=== PATIENT | male | born 1990 | race Caucasian/White ===

== ENCOUNTER 2022-07-04 09:10 | Emergency (ER) | payer OTHER ==
[2022-07-04] MEDS ORDERED: solu-MEDROL 125 MG, Sterile H2O 10 ml 2 ML IM ONE ×2 (09:32)
[2022-07-04] MEDS ORDERED: TORAdol 30 mg Injection IM ONE (09:33)
[2022-07-04] MEDS ORDERED: TORAdol 30 mg Injection ONE ×2 (09:37→09:41)
[2022-07-04] MEDS ORDERED: solu-MEDROL ONE (09:37)
[2022-07-04] MEDS ORDERED: Sterile H2O 10 ml IJ ONE (09:37)
[2022-07-04 09:45] LABS: Hematocrit 44.2 % (42-50); Hemoglobin 14.8 g/dL (12.5-18.0); Mean Cell Volume 89.7 fL (78-100); Mean Corpuscular Hgb Concent. 33.5 g/dL (32-36); Platelet Count 275 x10^3/uL (150-450); Red Blood Count 4.93 x10^6/uL (4.1-5.6); Red Cell Distribution Width 12.4 % (11.5-14.0)
[2022-07-04 09:48] VITALS: BP 140/76; PULSE 88; O2SAT 95
[2022-07-04 09:58] LABS: Erythrocyte Sedimentation Rate 9 mm/hr (0-15)
[2022-07-04 10:02] LABS: ALBUMIN 4.2 g/dL (3.5-5.0); ALKALINE PHOSPHATASE 75 U/L (38-126); ANION GAP 13.1 MEQ/L (5-15); BLOOD UREA NITROGEN 15 mg/dL (9-20); CHLORIDE 108 mmol/L (98-107); Calcium 8.9 mg/dL (8.4-10.2); Carbon Dioxide 25 mmol/L (22-30); Creatinine 1 0.94 mg/dL (0.66-1.25); EST GLOMERULAR FILTRATION RATE > 60.0 ML/MIN; Glucose 98 mg/dL (74-106); Potassium 4.3 mmol/L (3.5-5.1); SGOT/AST 30 U/L (17-59); SGPT/ALT 39 U/L (0-50); SODIUM 142 mmol/L (137-145); Total Protein 7.3 g/dL (6.3-8.2)
--- NOTE | 2022-07-04 10:17 | ERPHSYRPT ---
- History of Present Illness Time Seen by Provider: 07/04/22 09:40 Source: patient Exam Limitations: no limitations Patient Subjective Stated Complaint: C/O left outer ankle and foot pain. Patient states he has had gout flare ups prior and that this feels like the same thing to him. Triage Nursing Assessment: Patient brought back to ER in a W/C. He is alert and oriented. No SOB. Some warmth noted to left outer ankle and foot. No redness noted at this time. Physician History: Patient is a 31-year-old male who presents with a complaint of left foot pain. He has has a history of gout and he feels that this is another exacerbation of that disease. Most of the time his pain is in the right foot but this episode for the first time involves the left foot. The foot is hot to the touch and very tender. Method of Injury: unknown Occurred: yesterday Quality: burning, throbbing Severity of Pain-Max: severe Severity of Pain-Current: severe Lower Extremities Pain: foot: left Modifying Factors: Improves With: movement, other (Palpation) Associated Symptoms: unable to bear weight Allergies/Adverse Reactions: ciprofloxacin [From Cipro] Allergy (Severe, Verified 07/04/22 09:32) Difficulty Breathing Hx Tetanus, Diphtheria Vaccination/Date Given: Yes Hx Influenza Vaccination/Date Given: No Hx Pneumococcal Vaccination/Date Given: No Immunizations Up to Date: Yes Travel Risk - International Travel Have you traveled outside of the country in past 3 weeks: No - Coronavirus Screening Are you exhibiting any of the following symptoms?: No Close contact with a COVID-19 positive Pt in past 14-21 Days: No - Vaccine Status Have you recieved a Covid-19 vaccination: Yes 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[employer] - Review of Systems Constitutional: No Fever, No Chills Eyes: No Symptoms Ears, Nose, & Throat: No Symptoms Respiratory: No Cough, No Dyspnea Cardiac: No Chest Pain, No Edema, No Syncope Abdominal/Gastrointestinal: No Abdominal Pain, No Nausea, No Vomiting, No Diarrhea Genitourinary Symptoms: No Dysuria Musculoskeletal: Joint Pain, Joint Swelling, No Back Pain, No Neck Pain Skin: No Rash Neurological: No Dizziness, No Focal Weakness, No Sensory Changes Psychological: No Symptoms Endocrine: No Symptoms All Other Systems: Reviewed and Negative - Past Medical History Pertinent Past Medical History: Yes Musculoskeletal History: Fractures Other Medical History: gout, right ankle fracture - Past Surgical History Past Surgical History: Yes Gastrointestinal: Appendectomy Other Surgical History: Mastoidectomy - Social History Smoking Status: Current every day smoker How long have you smoked: 13 years Exposure to second hand smoke: No Drug Use: marijuana Patient Lives Alone: No - Nursing Vital Signs Nursing Vital Signs: Initial Vital Signs Temperature 97.8 F 07/04/22 09:34 Pulse Rate 88 07/04/22 09:34 Respiratory Rate 16 07/04/22 09:34 Blood Pressure 140/76 07/04/22 09:34 O2 Sat by Pulse Oximetry 95 07/04/22 09:34 Pain Scale Pain Intensity 6 - Physical Exam General Appearance: mild distress, alert Eyes, Ears, Nose, Throat Exam: moist mucous membranes Neck Exam: non-tender, supple Cardiovascular/Respiratory Exam: chest non-tender, normal breath sounds, regular rate/rhythm, no respiratory distress Gastrointestinal/Abdominal Exam: non-tender, guarding Back Exam: normal inspection, No vertebral tenderness Hips Exam: bilateral: non-tender, normal inspection, normal range of motion Legs Exam: bilateral leg: non-tender, normal inspection, normal range of motion Knees Exam: bilateral knee: non-tender, normal inspection, normal range of motion Ankle Exam: bilateral ankle: non-tender, normal inspection, normal range of alma on Foot Exam: left foot: bone tenderness, limited range of motion, pain, soft tissue tenderness, swelling, other (Warm to touch) Neuro/Tendon Exam: normal sensation, normal motor functions Mental Status Exam: alert, oriented x 3, cooperative Skin Exam: normal color, warm, dry SpO2 Interpretation: normal SpO2: 95 O2 Delivery: Room Air - Course Nursing assessment & vital signs reviewed: Yes Ordered Tests: Active Orders 24 hr Category Date Time Status CBC Stat Lab 07/04/22 09:44 Completed CMP Stat Lab 07/04/22 09:44 Completed SED RATE [Erythrocyte Sedimentation Rate] Stat Lab 07/04/22 09:44 Completed Uric Acid Stat Lab 07/04/22 09:44 Completed Medication Summary Discontinued Medications Generic Name Dose Route Start Last Admin Trade Name Freq PRN Reason Stop Dose Admin Methylprednisolone Sodium 0 mg 07/04/22 09:32 07/04/22 09:39 Succinate 125 mg/ Sterile IM 07/04/22 09:33 125 mg Water 2 ml STAT ONE Administration Ketorolac Tromethamine 60 mg 07/04/22 09:33 07/04/22 09:39 Ketorolac Tromethamine 30 Mg/Ml Inj IM 07/04/22 09:34 60 mg STAT ONE Administration Ketorolac Tromethamine Confirm 07/04/22 09:37 Ketorolac Tromethamine 30 Mg/Ml Inj Administered 07/04/22 09:38 Dose 30 mg .ROUTE .STK-MED ONE Ketorolac Tromethamine Confirm 07/04/22 09:41 Ketorolac Tromethamine 30 Mg/Ml Inj Administered 07/04/22 09:42 Dose 30 mg .ROUTE .STK-MED ONE Methylprednisolone Sodium Succinate Confirm 07/04/22 09:37 Methylprednis Sod Succ 125 Mg/2 Ml Vial Administered 07/04/22 09:38 Dose 125 mg .ROUTE .STK-MED ONE Sterile Water Confirm 07/04/22 09:37 Water For Injection,Sterile 10 Ml Vial Administered 07/04/22 09:38 Dose 10 ml IJ .STK-MED ONE Lab/Rad Data: Laboratory Result Diagrams 07/04/22 09:44 07/04/22 09:44 Laboratory Results 07/04/22 07/04/22 07/04/22 Range/Units 09:44 09:44 09:44 WBC 8.0 (4.0-10.5) x10^3/uL RBC 4.93 (4.1-5.6) x10^6/uL Hgb 14.8 (12.5-18.0) g/dL Hct 44.2 (42-50) % MCV 89.7 (78-100) fL MCH 30.0 (26-32) pg MCHC 33.5 (32-36) g/dL RDW 12.4 (11.5-14.0) % Plt Count 275 (150-450) x10^3/uL MPV 9.0 (7.5-11.0) fL ESR 9 (0-15) mm/hr Sodium 142 (137-145) mmol/L Potassium 4.3 (3.5-5.1) mmol/L Chloride 108 H (98-107) mmol/L Carbon Dioxide 25 (22-30) mmol/L Anion Gap 13.1 (5-15) MEQ/L BUN 15 (9-20) mg/dL Creatinine 0.94 (0.66-1.25) mg/dL Estimated GFR > 60.0 ML/MIN Glucose 98 (74-106) mg/dL Uric Acid 8.7 H (3.5-7.2) mg/dL Calcium 8.9 (8.4-10.2) mg/dL Total Bilirubin 0.40 (0.2-1.3) mg/dL AST 30 (17-59) U/L ALT 39 (0-50) U/L Alkaline Phosphatase 75 (38-126) U/L Serum Total Protein 7.3 (6.3-8.2) g/dL Albumin 4.2 (3.5-5.0) g/dL - Progress Progress: unchanged Progress Note: 07/04/22 10:12 Elevated uric acid consistent with acute gouty arthritis Medical Desision Making - Independent Historian Additional History obtained from: Relative/friend - Diagnostic Testing Diagnostic test were ordered, analyzed, and reviewed by me: Yes - Risk of complications Minimal Risk: Minimal risk of morbidity - Departure Departure Disposition: Home Clinical Impression: Acute gouty arthritis Condition: Stable Critical Care Time: No Prescriptions: Prednisone 10 mg [Deltasone 10 mg] 20 mg PO TID 6 Days #24 tablet Diclofenac Sodium 50 mg [Voltaren 50 mg] 50 mg PO TID 10 Days #30 tablet Allopurinol 300 mg [Zyloprim 300 mg] 300 mg PO DAILY 30 Days #30 tablet
== END 2022-07-04 10:35 | disposition home or self-care (01) ==
LOC: ED 09:10
DX: M10.9 Gout, unspecified (principal); M79.672 Pain in left foot; Z79.52 Long term (current) use of systemic steroids; Z72.0 Tobacco use
CPT/HCPCS: 36415; 80053; 84550; 85027; 85652; 96372; 99283; J1885; J2930

== ENCOUNTER 2022-07-29 23:52 | Emergency (ER) | payer OTHER ==
--- NOTE | 2022-07-30 00:03 | ERPHSYRPT ---
- History of Present Illness Time Seen by Provider: 07/30/22 00:03 Source: patient, EMS, old records Exam Limitations: clinical condition Physician History: This is a morbidly obese 32-year-old white male patient who presents via ambulance because of generalized body pain. Pain worse in his abdomen and even into his testicles. Patient used methamphetamines at about 8 PM and the pain started approximately 9:30 PM. Patient does use marijuana and smokes cigarettes as well. He has no specific reason why he was using methamphetamines other than to get high. Patient states he had not eaten since yesterday. He states he has not been hungry. Additional history was obtained by reviewing old charts and obtaining history from paramedics. He describes the pain is throbbing cramping and stabbing. He has not had any vomiting. He denies diarrhea. Patient states he has not suffered any acute traumatic injury Timing/Duration: today Severity: moderate Associated Symptoms: abdominal pain, other (Bilateral groin pain), No fever Allergies/Adverse Reactions: ciprofloxacin [From Cipro] Allergy (Severe, Verified 07/29/22 23:56) Difficulty Breathing Home Medications: No Reportable Medications [No Reported Medications] 07/29/22 [History] Hx Tetanus, Diphtheria Vaccination/Date Given: Yes Hx Influenza Vaccination/Date Given: No Hx Pneumococcal Vaccination/Date Given: No Travel Risk - International Travel Have you traveled outside of the country in past 3 weeks: No - Coronavirus Screening Are you exhibiting any of the following symptoms?: No Close contact with a COVID-19 positive Pt in past 14-21 Days: No - Vaccine Status Have you recieved a Covid-19 vaccination: Yes 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[employer] - Review of Systems Constitutional: No Symptoms Eyes: No Symptoms Ears, Nose, & Throat: No Symptoms Respiratory: No Symptoms Cardiac: No Symptoms Abdominal/Gastrointestinal: Abdominal Pain, No Nausea, No Vomiting, No Diarrhea Genitourinary Symptoms: No Symptoms Skin: No Symptoms Neurological: No Symptoms Psychological: Drug Abuse, Anxiety Endocrine: No Symptoms Hematologic/Lymphatic: No Symptoms Immunological/Allergic: No Symptoms All Other Systems: Reviewed and Negative - Past Medical History Pertinent Past Medical History: Yes Musculoskeletal History: Fractures Other Medical History: gout, right ankle fracture - Past Surgical History Past Surgical History: Yes Gastrointestinal: Appendectomy Other Surgical History: Mastoidectomy - Social History Smoking Status: Current every day smoker How long have you smoked: 13 years Exposure to second hand smoke: No Drug Use: marijuana Patient Lives Alone: No - Nursing Vital Signs Nursing Vital Signs: Initial Vital Signs Temperature 97.6 F 07/29/22 23:55 Pulse Rate 105 H 07/29/22 23:55 Respiratory Rate 28 H 07/29/22 23:55 Pain Scale Pain Intensity 6 - Physical Exam General Appearance: mild distress, alert, anxiety, obese Eye Exam: PERRL/EOMI, eyes nml inspection Ears, Nose, Throat Exam: normal ENT inspection, moist mucous membranes Neck Exam: normal inspection, non-tender, supple, full range of motion Respiratory Exam: normal breath sounds, lungs clear, airway intact, No chest tenderness, No respiratory distress Cardiovascular Exam: tachycardia Gastrointestinal/Abdomen Exam: soft, normal bowel sounds, tenderness (Generalized), guarding (Generalized), No rebound Rectal Exam: not done Back Exam: normal inspection, normal range of motion, No CVA tenderness, No vertebral tenderness Extremity Exam: normal inspection, normal range of motion, pelvis stable Neurologic Exam: alert, oriented x 3, cooperative, button broacher II-XII nml as tested, intoxicated appearance, other (Appears intoxicated) Skin Exam: normal color, warm, dry Lymphatic Exam: No adenopathy SpO2 Interpretation: normal O2 Delivery: Room Air - Course Nursing assessment & vital signs reviewed: Yes EKG Interpreted by Me: RATE (74), Sinus Rhythm, NORMAL AXIS, NORMAL INTERVALS, NORMAL QRS, NORMAL ST-T, Other (No acute ischemic changes on today's twelve-lead EKG) Ordered Tests: Active Orders 24 hr Category Date Time Status Clean Catch Urine Specimen STAT Care 07/30/22 00:06 Active IV Insertion STAT Care 07/30/22 00:06 Active ABDOMEN AND PELVIS W/0 CONTRAS [CT] Stat Exams 07/30/22 00:47 Taken AMYLASE Stat Lab 07/30/22 00:24 Completed CBC W DIFF Stat Lab 07/30/22 00:24 Completed CMP Stat Lab 07/30/22 00:24 Completed CULTURE,URINE Stat Lab 07/30/22 00:11 Received ETHYL ALCOHOL Stat Lab 07/30/22 00:24 Completed LIPASE Stat Lab 07/30/22 00:24 Completed UA W/RFX UR CULTURE Stat Lab 07/30/22 00:11 Completed Urine Triage Profile Stat Lab 07/30/22 00:11 Completed Medication Summary Discontinued Medications Generic Name Dose Route Start Last Admin Trade Name Ebony PRN Reason Stop Dose Admin Sodium Chloride 1,000 mls @ 999 mls/hr 07/30/22 00:06 07/30/22 02:21 Sodium Chloride 0.9% 1000 Ml IV 07/30/22 01:06 Infused .Q1H1M STA Infusion Sodium Chloride Confirm 07/30/22 00:16 Sodium Chloride 0.9% 1000 Ml Administered 07/30/22 00:17 Dose 1,000 mls @ ud .ROUTE .STK-MED ONE Sodium Chloride 1,000 mls @ 999 mls/hr 07/30/22 01:12 07/30/22 01:26 Sodium Chloride 0.9% 1000 Ml IV 07/30/22 02:12 999 mls/hr .Q1H1M STA Administration Sodium Chloride Confirm 07/30/22 01:24 Sodium Chloride 0.9% 1000 Ml Administered 07/30/22 01:25 Dose 1,000 mls @ ud .ROUTE .STK-MED ONE Lorazepam 1 mg 07/30/22 00:08 07/30/22 00:17 Lorazepam 2 Mg/1 Ml 2 Mg Vial IV 07/30/22 00:09 1 mg STAT ONE Administration Lorazepam Confirm 07/30/22 00:15 Lorazepam 2 Mg/1 Ml 2 Mg Vial Administered 07/30/22 00:16 Dose 2 mg .ROUTE .STK-MED ONE Lorazepam 1 mg 07/30/22 01:11 07/30/22 01:25 Lorazepam 2 Mg/1 Ml 2 Mg Vial IV 07/30/22 01:12 1 mg STAT ONE Administration Lorazepam Confirm 07/30/22 01:23 Lorazepam 2 Mg/1 Ml 2 Mg Vial Administered 07/30/22 01:24 Dose 2 mg .ROUTE .STK-MED ONE Ondansetron HCl 4 mg 07/30/22 00:06 07/30/22 00:17 Ondansetron Hcl 4 Mg/2 Ml Vial IV 07/30/22 00:07 4 mg STAT ONE Administration Ondansetron HCl Confirm 07/30/22 00:15 Ondansetron Hcl 4 Mg/2 Ml Vial Administered 07/30/22 00:16 Dose 4 mg .ROUTE .STK-MED ONE Pantoprazole Sodium 40 mg 07/30/22 00:06 07/30/22 00:17 Pantoprazole 40 Mg Vial IV 07/30/22 00:07 40 mg STAT ONE Administration Pantoprazole Sodium Confirm 07/30/22 00:16 Pantoprazole 40 Mg Vial Administered 07/30/22 00:17 Dose 40 mg IV .[facility]-MED ONE Lab/Rad Data: Laboratory Result Diagrams 07/30/22 00:24 07/30/22 00:24 Laboratory Results 07/30/22 07/30/22 07/30/22 Range/Units 00:24 00:24 00:24 WBC 12.5 H (4.0-10.5) x10^3/uL RBC 5.11 (4.1-5.6) x10^6/uL Hgb 15.4 (12.5-18.0) g/dL Hct 44.0 (42-50) % MCV 86.1 (78-100) fL MCH 30.1 (26-32) pg MCHC 35.0 (32-36) g/dL RDW 12.2 (11.5-14.0) % Plt Count 415 (150-450) x10^3/uL MPV 8.8 (7.5-11.0) fL Gran % 80.2 H (36.0-66.0) % Immature Gran % (Auto) 0.4 (0.00-0.4) % Nucleat RBC Rel Count 0.0 (0.00-0.1) % Eos # (Auto) 0.02 (0-0.5) x10^3/uL Immature Gran # (Auto) 0.05 H (0.00-0.03) x10^3u/L Absolute Lymphs (auto) 1.47 (1.0-4.6) x10^3/uL Absolute Monos (auto) 0.90 (0.0-1.3) x10^3/uL Absolute Nucleated RBC 0.00 (0.00-0.01) x10^3u/L Lymphocytes % 11.8 L (24.0-44.0) % Monocytes % 7.2 (0.0-12.0) % Eosinophils % 0.2 (0.00-5.0) % Basophils % 0.2 (0.0-0.4) % Absolute Granulocytes 10.03 H (1.4-6.9) x10^3/uL Basophils # 0.03 (0-0.4) x10^3/uL Sodium 136 L (137-145) mmol/L Potassium 3.9 (3.5-5.1) mmol/L Chloride 103 (98-107) mmol/L Carbon Dioxide 13 L* (22-30) mmol/L Anion Gap 22.5 H (5-15) MEQ/L BUN 17 (9-20) mg/dL Creatinine 1.16 (0.66-1.25) mg/dL Estimated GFR > 60.0 ML/MIN Glucose 143 H (74-106) mg/dL Calcium 10.2 (8.4-10.2) mg/dL Total Bilirubin 0.80 (0.2-1.3) mg/dL AST 47 (17-59) U/L ALT 57 H (0-50) U/L Alkaline Phosphatase 81 (38-126) U/L Serum Total Protein 8.3 H (6.3-8.2) g/dL Albumin 4.8 (3.5-5.0) g/dL Amylase 173 H (30-110) U/L Lipase 56 (23-300) U/L Urine Color (Yellow) Urine Appearance (Clear) Urine pH (4.6-8.0) Ur Specific [place] (1.005-1.030) Urine Protein (Negative) Urine Glucose (UA) (Negative) mg/dL Urine Ketones (Negative) Urine Blood (Negative) Urine Nitrite (Negative) Urine Bilirubin (Negative) Urine Urobilinogen (0.2) mg/dL Ur Leukocyte Esterase (Negative) U Hyaline Cast (Auto) (0-2) /LPF Urine Microscopic RBC (0-5) /HPF Urine Microscopic WBC (0-5) /HPF Ur Epithelial Cells (None Seen) /HPF Urine Bacteria (None Seen) /HPF Urine Culture Reflexed (NO) Urine Opiates Level (NEGATIVE) Ur Methadone (NEGATIVE) Urine Barbiturates (NEGATIVE) Ur Phencyclidine (PCP) (NEGATIVE) Urine Amphetamine (NEGATIVE) U Benzodiazepine Level (NEGATIVE) Urine Cocaine (NEGATIVE) Urine Marijuana (THC) (NEGATIVE) Ethyl Alcohol < 10 (0-10) mg/dL 07/30/22 07/30/22 Range/Units 00:11 00:11 WBC (4.0-10.5) x10^3/uL RBC (4.1-5.6) x10^6/uL Hgb (12.5-18.0) g/dL Hct (42-50) % MCV (78-100) fL MCH (26-32) pg MCHC (32-36) g/dL RDW (11.5-14.0) % Plt Count (150-450) x10^3/uL MPV (7.5-11.0) fL Gran % (36.0-66.0) % Immature Gran % (Auto) (0.00-0.4) % Nucleat RBC Rel Count (0.00-0.1) % Eos # (Auto) (0-0.5) x10^3/uL Immature Gran # (Auto) (0.00-0.03) x10^3u/L Absolute Lymphs (auto) (1.0-4.6) x10^3/uL Absolute Monos (auto) (0.0-1.3) x10^3/uL Absolute Nucleated RBC (0.00-0.01) x10^3u/L Lymphocytes % (24.0-44.0) % Monocytes % (0.0-12.0) % Eosinophils % (0.00-5.0) % Basophils % (0.0-0.4) % Absolute Granulocytes (1.4-6.9) x10^3/uL Basophils # (0-0.4) x10^3/uL Sodium (137-145) mmol/L Potassium (3.5-5.1) mmol/L Chloride (98-107) mmol/L Carbon Dioxide (22-30) mmol/L Anion Gap (5-15) MEQ/L BUN (9-20) mg/dL Creatinine (0.66-1.25) mg/dL Estimated GFR ML/MIN Glucose (74-106) mg/dL Calcium (8.4-10.2) mg/dL Total Bilirubin (0.2-1.3) mg/dL AST (17-59) U/L ALT (0-50) U/L Alkaline Phosphatase (38-126) U/L Serum Total Protein (6.3-8.2) g/dL Albumin (3.5-5.0) g/dL Amylase (30-110) U/L Lipase (23-300) U/L Urine Color Dark Yellow (Yellow) Urine Appearance Cloudy A (Clear) Urine pH 6.5 (4.6-8.0) Ur Specific [place] >=1.030 A (1.005-1.030) Urine Protein 30 (Negative) Urine Glucose (UA) Negative (Negative) mg/dL Urine Ketones 80 A (Negative) Urine Blood NHT (Negative) Urine Nitrite Negative (Negative) Urine Bilirubin Negative (Negative) Urine Urobilinogen 1.0 A (0.2) mg/dL Ur Leukocyte Esterase Negative (Negative) U Hyaline Cast (Auto) NONE SEEN (0-2) /LPF Urine Microscopic RBC 6-10 A (0-5) /HPF Urine Microscopic WBC 0-2 (0-5) /HPF Ur Epithelial Cells None Seen (None Seen) /HPF Urine Bacteria None Seen (None Seen) /HPF Urine Culture Reflexed YES (NO) Urine Opiates Level NEGATIVE (NEGATIVE) Ur Methadone NEGATIVE (NEGATIVE) Urine Barbiturates NEGATIVE (NEGATIVE) Ur Phencyclidine (PCP) NEGATIVE (NEGATIVE) Urine Amphetamine POSITIVE (NEGATIVE) U Benzodiazepine Level NEGATIVE (NEGATIVE) Urine Cocaine NEGATIVE (NEGATIVE) Urine Marijuana (THC) POSITIVE (NEGATIVE) Ethyl Alcohol (0-10) mg/dL - Progress Progress Note: 07/30/22 02:31 Patient is not suicidal patient is not homicidal. Patient wants to sign out AGAINST MEDICAL ADVICE. He is aware that we do not have the full work-up completed yet. He may have medical issue that may cause or his condition may worsen. He understands but he still desires to sign out AMA. Medical Desision Making - Independent Historian Additional History obtained from: Media Services Specialist/EMT - Social Determinants of Health Pt's dx & treatment plan are significantly limited by SDOH: Unemployed, homelessness Limited access to: transportation - Diagnostic Testing Diagnostic test were ordered, analyzed, and reviewed by me: Yes - Departure Departure Disposition: AMA Clinical Impression: Abdominal pain, Methamphetamine abuse Condition: Fair Critical Care Time: No Referrals: DOCTOR,NO FAMILY [Primary Care Provider] - Follow up/PCP as directed
[2022-07-30] MEDS ORDERED: PROTONIX 40 MG IV IV ONE ×2 (00:06→00:16)
[2022-07-30] MEDS ORDERED: Zofran 4 MG/2 ML VIAL IV ONE (00:06)
[2022-07-30] MEDS ORDERED: Sodium Chloride 0.9% 1000 ML 1,000 ML IV STA ×2 (00:06→01:12)
[2022-07-30] MEDS ORDERED: Ativan 2 MG/1 ML VIAL IV ONE ×2 (00:08→01:11)
[2022-07-30] MEDS ORDERED: Ativan 2 MG/1 ML VIAL ONE ×2 (00:15→01:23)
[2022-07-30] MEDS ORDERED: Zofran 4 MG/2 ML VIAL ONE (00:15)
[2022-07-30] MEDS ORDERED: Sodium Chloride 0.9% 1000 ML 1,000 ML ONE ×2 (00:16→01:24)
[2022-07-30 00:26] LABS: Absolute Neutrophil Ct (ANC) 10.03 x10^3/uL (1.4-6.9); BASOPHIL % 0.2 % (0.0-0.4); Basophil (Absolute #) 0.03 x10^3/uL (0-0.4); Eosinophil % 0.2 % (0.00-5.0); Eosinophil (Absolute #) 0.02 x10^3/uL (0-0.5); Hemoglobin 15.4 g/dL (12.5-18.0); IMMATURE GRAN # 0.05 x10^3u/L (0.00-0.03); IMMATURE GRAN % 0.4 % (0.00-0.4); Lymphocyte (Absolute #) 1.47 x10^3/uL (1.0-4.6); Lymphocytes % 11.8 % (24.0-44.0); Mean Cell Volume 86.1 fL (78-100); Mean Corpuscular Hemoglobin 30.1 pg (26-32); Mean Platelet Volume 8.8 fL (7.5-11.0); Monocytes % 7.2 % (0.0-12.0); Neutrophil % 80.2 % (36.0-66.0); Platelet Count 415 x10^3/uL (150-450); Red Blood Count 5.11 x10^6/uL (4.1-5.6); Red Cell Distribution Width 12.2 % (11.5-14.0); White Blood Count 12.5 x10^3/uL (4.0-10.5)
[2022-07-30 00:34] LABS: Appearance Cloudy (Clear); Bacteria None Seen /HPF (None Seen); Bilirubin Negative (Negative); Blood NHT (Negative); Epithelial Cells None Seen /HPF (None Seen); Glucose, Urine Negative (Negative); Hyaline Casts NONE SEEN /LPF (0-2); Ketones 80 (Negative); Leukocyte Esterase Negative (Negative); Nitrite Negative (Negative); Ph 6.5 (4.6-8.0); Protein,Urine Dip 30 (Negative); Specific Gravity >=1.030 (1.005-1.030); WBC 0-2 /HPF (0-5)
[2022-07-30 00:38] LABS: ADD URINE CULTURE? YES (NO)
[2022-07-30 00:39] LABS: ALBUMIN 4.8 g/dL (3.5-5.0); ALKALINE PHOSPHATASE 81 U/L (38-126); AMYLASE 173 U/L (30-110); ANION GAP 22.5 MEQ/L (5-15); BLOOD UREA NITROGEN 17 mg/dL (9-20); CHLORIDE 103 mmol/L (98-107); Calcium 10.2 mg/dL (8.4-10.2); Creatinine 1 1.16 mg/dL (0.66-1.25); EST GLOMERULAR FILTRATION RATE > 60.0 ML/MIN; Glucose 143 mg/dL (74-106); LIPASE 56 U/L (23-300); Potassium 3.9 mmol/L (3.5-5.1); SGOT/AST 47 U/L (17-59); SODIUM 136 mmol/L (137-145); Total Protein 8.3 g/dL (6.3-8.2)
[2022-07-30 00:47] LABS: Barbiturate,Urine NEGATIVE (NEGATIVE); Benzodiazepine,Urine NEGATIVE (NEGATIVE); Cocaine,Urine NEGATIVE (NEGATIVE); Methadone,Urine NEGATIVE (NEGATIVE); Opiate,Urine NEGATIVE (NEGATIVE); PCP,Urine NEGATIVE (NEGATIVE); THC,Urine POSITIVE (NEGATIVE)
[2022-07-30 00:51] LABS: SGPT/ALT 57 U/L (0-50)
[2022-07-30 01:07] VITALS: PULSE 110; O2SAT 97
[2022-07-30 01:08] LABS: Amphetamine,Urine POSITIVE (NEGATIVE)
[2022-07-30 01:11] LABS: Carbon Dioxide 13 mmol/L (22-30)
--- NOTE | 2022-07-30 09:01 | XRAY ---
Indication: Abdomen pain and nausea. Multiple contiguous axial images obtained through the abdomen and pelvis without contrast. Comparison: None Lung bases demonstrates 8 mm right base calcified granuloma. 2 mm left lower lobe noncalcified nodule presumed granulomatous. Heart not enlarged. Noncontrasted stomach and bowel loops appear nonobstructed. Appendectomy reported. No free fluid/air. Distal left ureter demonstrates 2-3 mm calculus just proximal to UVJ. Proximal left ureter minimally prominent along with minimal hydronephrosis favoring partial obstructive uropathy. Left kidney demonstrates 2 additional punctate calculi. Incidental tiny splenic calcified granuloma. Remaining liver, gallbladder, pancreas, spleen, adrenal glands, kidneys, ureters, bladder, and aorta are unremarkable for noncontrast exam. Osseous structures intact. Query partially visualized testicle versus hydrocele in left inguinal canal. Impression: 1. 2-3 mm distal left ureteral calculus producing partial obstruction. 2 additional left renal punctate calculi. 2. Calcified/noncalcified pulmonary micronodules presumed granulomatous. 3. Query partially visualized testicle versus hydrocele left inguinal canal. Sonogram may yield further information. Comment: Preliminary interpretation made by C. No critical discrepancy.
== END 2022-07-30 02:33 | disposition left against medical advice (07) ==
LOC: ED 23:52
DX: R10.9 Unspecified abdominal pain (principal); F15.10 Other stimulant abuse, uncomplicated; Z72.0 Tobacco use; Z59.00 Homelessness unspecified; Z56.0 Unemployment, unspecified; Z59.82 Transportation insecurity
CPT/HCPCS: 36000; 36415; 74176; 80053; 80307; 81001; 82077; 82150; 83690; 85025; 87086; 96374; 96375; 96376; 99284; J2060; J2405

== ENCOUNTER 2022-08-02 22:07 | Emergency (ER) | payer OTHER | END 2022-08-02 22:55 | disposition left against medical advice (07) | LOC: ED 22:07 | DX: Z53.21 Procedure and treatment not carried out due to patient leaving prior to being seen by health care provider (principal) ==